=== PATIENT | female | born 1990 | race Caucasian/White ===

== ENCOUNTER 2020-05-13 11:17 | Emergency (ER) | payer OTHER ==
[~2020-05-13] VITALS: Ht 175.3 cm; Wt 81.8 kg
[2020-05-13 11:30] VITALS: BP 121/80
--- NOTE | 2020-05-13 11:36 | PHYS DOC ---
Past History Past Medical History: No Pertinent History Past Surgical History: No Surgical History Alcohol Use: None General Adult EDM: Chief Complaint: SEXUALLY TRANSMITTED DISEASE HPI: HPI: Patient is a 30-year-old female coming in for treatment of syphilis. Patient received notification by mail when she came during it but she tested positive for syphilis, exact test use was not indicated on the form. Patient has not had any symptoms. Was sexually active with a male and would have contracted it within the past 3 weeks. He was not annoyed. Patient is trying to get follow- up with primary care but we will not be able to see him for 2 weeks. Review of Systems: Review of Systems: Constitutional: Denies fever or chills Eyes: Denies change in visual acuity HENT: Denies nasal congestion or sore throat Respiratory: Denies cough or shortness of breath Cardiovascular: Denies chest pain or edema GI: Denies abdominal pain, nausea, vomiting, bloody stools or diarrhea : Denies dysuria Musculoskeletal: Denies back pain or joint pain Integument: Denies rash Neurologic: Denies headache, focal weakness or sensory changes Endocrine: Denies polyuria or polydipsia Lymphatic: Denies swollen glands Psychiatric: Denies depression or anxiety Allergies: Allergies: Allergies Coded Allergies Type Severity Reaction Last Updated Verified No Known Drug Allergies 05/13/20 No Physical Exam: PE: Constitutional: Well developed, well nourished, no acute distress, non-toxic appearance. [] HENT: Normocephalic, atraumatic, bilateral external ears normal, oropharynx moist, no oral exudates, nose normal. [] Eyes: PERRLA, EOMI, conjunctiva normal, no discharge. [] Neck: Normal range of motion, no tenderness, supple, no stridor. [] Cardiovascular:Heart rate regular rhythm, no murmur [] Lungs & Thorax: Bilateral breath sounds clear to auscultation [] Abdomen: Bowel sounds normal, soft, no tenderness, no masses, no pulsatile masses. [] Skin: Warm, dry, no erythema, no rash. [] Back: No tenderness, no CVA tenderness. [] Extremities: No tenderness, no cyanosis, no clubbing, ROM intact, no edema. [] Neurologic: Alert and oriented X 3, normal motor function, normal sensory function, no focal deficits noted. [] Psychologic: Affect normal, judgement normal, mood normal. [] EKG: EKG: [] Radiology/Procedures: Radiology/Procedures: [] Heart Score: Risk Factors: Risk Factors: DM, Current or recent (<one month) smoker, HTN, HLP, family history of CAD, obesity. Risk Scores: Score 0 - 3: 2.5% MACE over next 6 weeks - Discharge Home Score 4 - 6: 20.3% MACE over next 6 weeks - Admit for Clinical Observation Score 7 - 10: 72.7% MACE over next 6 weeks - Early Invasive Strategies Course & Med Decision Making: Course & Med Decision Making Treated with IM penicillin [] Dragon Disclaimer: Dragon Disclaimer: This electronic medical record was generated, in whole or in part, using a voice recognition dictation system. Departure Departure: Impression: Primary Impression: Syphilis (acquired) Disposition: 01 DC HOME SELF CARE/HOMELESS Condition: STABLE Referrals: PCP,EUGENIE (PCP) KESHA BELL MD Patient Instructions: Syphilis Detection Test YRN ZAYAS MD May 13, 2020 11:36
[2020-05-13] MEDS ORDERED: PENICILLIN G BENZATHINE LA 1,200,000 UNIT/2 ML DISP.SYRIN. IM ONE (11:45)
== END 2020-05-13 12:02 | disposition home or self-care (01) ==
LOC: ER 11:17
DX: A53.9 Syphilis, unspecified (principal)
CPT/HCPCS: 96372; 99283; J0561

== ENCOUNTER 2020-07-10 23:54 | Emergency (ER) | payer OTHER ==
[~2020-07-10] VITALS: Ht 177.8 cm; Wt 88.5 kg
--- NOTE | 2020-07-11 | PHYS DOC ---
Past History Past Medical History: No Pertinent History Past Surgical History: No Surgical History Alcohol Use: None General Adult HPI: HPI: ".. I having really bad neck pain... The people at said I have a pinched nerve,.... And I need a MRI... I am supposed to get a steroid shot if the physical therapy does not work in the next 4 weeks.... 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 Pain and numbness seems to follow dermatomes 4,5 and 6 in left arm. Patient states she has had this problem for years but a recent exacerbation. Patient states she is waking 1 morning with torticollis-like symptoms and since that time she has had somewhat persistent pain along this dermatome. 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 Patient denies any recent ballistic injury. Patient does have a previous diagnosis of rheumatoid which runs in her family. No recent travel outside the [place] area. No specific ill contacts. No history of immunosuppression. Patient does smoke. Patient reportedly follows at for all her care. Is following with Dr. Wilfredo Kurtz and Kylee Barrios. Patient does have referral to pain center. Patient is tried various [id number] remedies such as [place] balm, ointments, compresses, massage with no relief of her pain. Patient is currently on gabapentin. Patient denies any fever or chills. Patient denies problems with defecation or urination. Patient is right-hand dominant. Patient states she just completed her menstruation. Does have a history of approximately 11 pregnancies all resulted in miscarry. Review of Systems: Review of Systems: Constitutional: Denies fever or chills Eyes: Denies change in visual acuity HENT: Denies nasal congestion or sore throat . Complains of cervical neuropathy on the left- C4, 5, 6 Dermatone Respiratory: Denies cough or shortness of breath Cardiovascular: Denies chest pain or edema GI: Denies abdominal pain, nausea, vomiting, bloody stools or diarrhea : Denies dysuria Musculoskeletal: Denies back pain or joint pain Integument: Denies rash Neurologic: Denies headache, focal weakness or sensory changes Endocrine: Denies polyuria or polydipsia Lymphatic: Denies swollen glands Psychiatric: Denies depression or anxiety Family History: Family History: Rheumatoid arthritis Current Medications: Current Meds: See nursing for home meds Allergies: Allergies: Allergies Coded Allergies Type Severity Reaction Last Updated Verified No Known Drug Allergies 05/13/20 No Physical Exam: PE: Constitutional: Moderate acute distress, non-toxic appearance. [] HENT: Normocephalic, atraumatic, bilateral external ears normal, oropharynx moist, no oral exudates, nose normal. [] Eyes: PERRLA, EOMI, conjunctiva normal, no discharge. [] Neck: Normal range of motion, no tenderness, supple, no stridor. Localizes pain along C4-5-6 dermatome into left arm. Cardiovascular:Heart rate regular rhythm, no murmur [] Lungs & Thorax: Bilateral breath sounds equal apex with scattered wheezes on auscultation [] Abdomen: Bowel sounds normal, soft, no tenderness, no masses, no pulsatile masses. [] Skin: Warm, dry, no erythema, no rash. Tattoos Back: No tenderness, no CVA tenderness. [] Does have trapezius muscle spasm on the left. Extremities: No tenderness, no cyanosis, no clubbing, ROM intact, no edema. [] Sensation in left deltoid. Neurologic: Alert and oriented X 3, moves all extremities on request, has distal vibratory 128 in hands and feet, no focal deficits noted. [] DTRs +2 patella and brachial. Psychologic: Affect anxious, judgement normal, mood normal. [] EKG: EKG: [] Radiology/Procedures: Radiology/Procedures: Patient has a pending MRI at upon completing physical therapy [] Heart Score: HEART Score for Chest Pain: HEART Score for Chest Pain Response (Comments) Value History Slighlty/Non-Suspicious 0 ECG Normal 0 Age < 45 0 Risk Factors 1 or 2 Risk Factors 1 Total 1 Risk Factors: Risk Factors: DM, Current or recent (<one month) smoker, HTN, HLP, family history of CAD, obesity. Risk Scores: Score 0 - 3: 2.5% MACE over next 6 weeks - Discharge Home Score 4 - 6: 20.3% MACE over next 6 weeks - Admit for Clinical Observation Score 7 - 10: 72.7% MACE over next 6 weeks - Early Invasive Strategies Course & Med Decision Making: Course & Med Decision Making Pertinent Labs and Imaging studies reviewed. (See chart for details) Patient use ice packs as needed. Use gentle massage. Keep follow-up at med clinic and pain center. Keep follow-up with PT. Continue current meds as previously described at . Patient will be given a trial of Depo-Medrol 40 IM. IM injection of Toradol. Patient take Tylenol ibuprofen as needed for pain. For marked pain may do a trial of Vicoprofen at night before she goes to bed. Patient must keep continuity of care. Keep follow-ups at and most likely need an MRI to fully evaluate her cervical neuropathy. Impression: 1. Cervical Neuropathy - [] Laxmi Disclaimer: Dragmaureen Disclaimer: This electronic medical record was generated, in whole or in part, using a voice recognition dictation system. Departure Departure: Referrals: PCP,UNKNOWN (PCP) Scripts Hydrocodone/Ibuprofen (HYDROCODONE-IBUPROFEN 7.5-200 ) 1 Each Tablet 1 TAB PO PRN Q6HRS PRN for PAIN, #30 TAB 0 Refills Prov: ROSAS CHOUDHURY MD 07/11/20 Cyclobenzaprine Hcl (CYCLOBENZAPRINE HCL) 10 Mg Tablet 10 MG PO TID PRN PRN for muscle spasm, #30 TAB Prov: ROSAS CHOUDHURY MD 07/11/20 Dragmaureen Disclaimer This chart was dictated in whole or in part using Voice Recognition software in a busy, high-work load, and often noisy Emergency Department environment. It may contain unintended and wholly unrecognized errors or omissions. ROSAS CHOUDHURY MD Jul 11, 2020 00:00
[2020-07-11 00:03] VITALS: BP 140/90
[2020-07-11] MEDS ORDERED: CYCL-331 PO (00:23)
[2020-07-11] MEDS ORDERED: HYDR-1179 PO (00:23)
[2020-07-11] MEDS ORDERED: methylPREDNISolone ACETATE 40 MG/ML VIAL. IM ONE (00:30)
[2020-07-11] MEDS ORDERED: KETOROLAC 60 MG/2 ML VIAL. IM ONE (00:30)
== END 2020-07-11 00:38 | disposition home or self-care (01) ==
LOC: ER 23:54
DX: G54.2 Cervical root disorders, not elsewhere classified (principal); M62.838 Other muscle spasm
CPT/HCPCS: 96372; 99284; J1030; J1885